=== PATIENT | male | born 1960 | race Hispanic/Latino ===

== ENCOUNTER 2024-03-29 05:54 | Day surgery (SDC) | payer MEDICARE ==
[2024-03-29] VITALS (12 sets, daily range): BP systolic 90–126; BP diastolic 53–79; PULSE 48–58; RESP 14–18
[~2024-03-29] VITALS: Ht 167.6 cm; Wt 83.0 kg
[2024-03-29] MEDS ORDERED: ASPI-1197 PO (07:24)
[2024-03-29] MEDS ORDERED: SIMV40TA59 PO (07:24)
[2024-03-29] MEDS ORDERED: OMEP20TA20 PO (07:24)
[2024-03-29] MEDS ORDERED: DONE10TA43 PO (07:24)
[2024-03-29] MEDS ORDERED: SEMA1PEN3 SQ (07:24)
[2024-03-29] MEDS ORDERED: FOLI0.8T22 PO (07:24)
[2024-03-29] MEDS ORDERED: FLUT1BLS3 IH (07:24)
[2024-03-29] MEDS ORDERED: METF-444 PO (07:24)
[2024-03-29] MEDS ORDERED: LEVO75CA5 PO (07:24)
[2024-03-29] MEDS ORDERED: LOSA25TA41 PO (07:24)
[2024-03-29] MEDS ORDERED: AMLO-257 PO (07:24)
[2024-03-29] MEDS ORDERED: FENO145T26 PO (07:24)
[2024-03-29] MEDS: 0.9%NACL 1000ML 1,000 ML IV ONE (07:38)
[2024-03-29] MEDS ORDERED: PROPOFOL 10 MG/ML 20ML VIAL IV ONE (09:21)
[2024-03-29] MEDS ORDERED: LEVOFLOXACIN 500 MG/D5W 100 ML 100 ML ONE (09:34)
== END 2024-03-29 11:25 | disposition home or self-care (01) ==
LOC: DAH 05:54 → ENDO 05:54
PROVIDERS: ATTEND Internal Medicine Gastroenterology
DX: R93.3 Abnormal findings on diagnostic imaging of other parts of digestive tract (principal); K86.2 Cyst of pancreas; K86.9 Disease of pancreas, unspecified; K21.9 Gastro-esophageal reflux disease without esophagitis; K29.70 Gastritis, unspecified, without bleeding; I10 Essential (primary) hypertension; E78.5 Hyperlipidemia, unspecified; E11.9 Type 2 diabetes mellitus without complications; N20.0 Calculus of kidney; M19.90 Unspecified osteoarthritis, unspecified site; Z82.49 Family history of ischemic heart disease and other diseases of the circulatory system; Z79.84 Long term (current) use of oral hypoglycemic drugs; Z79.82 Long term (current) use of aspirin; Z79.899 Other long term (current) drug therapy; Z98.890 Other specified postprocedural states
CPT/HCPCS: 43238; 82948 ×2; 36415; 88305; 88112; 82378; J1956; J7030 ×2; J2704; A4620; A4215 ×2; A4223; A7002; A4222; A4221; A4663; A4606; J3490